=== PATIENT | female | born 2000 | race Caucasian/White ===

== ENCOUNTER 2018-05-08 13:41 | Emergency (ER) | payer OTHER ==
[2018-05-08 14:14] VITALS: BP 141/68
--- NOTE | 2018-05-08 14:22 | UC ---
General HPI - HPI Summary HPI Summary: pt fell on a cement sidewalk around 1am(05/08/18)and cut her R knee. her friends tried to clear it. she comes in today to have it checked at the request of her mother. last tetanus was within 10 years, mother confirms this. no bony deformity of limited ROM. no fever or swelling. - History of Current Complaint Chief Complaint: UCLaceration Stated Complaint: RIGHT KNEE INJURY Time Seen by Provider: 05/08/18 14:03 Hx Obtained From: Patient Hx Last Menstrual Period: 04/26/17 Onset/Duration: Sudden Onset Timing: Constant Pain Intensity: 0 Associated Signs & Symptoms: Negative: Edema, Fever - Allergy/Home Medications Allergies/Adverse Reactions: Allergies Allergy/AdvReac Type Severity Reaction Status Date / Time No Known Allergies Allergy Verified 05/08/18 14:07 PMH/Surg Hx/FS Hx/Imm Hx Previously Healthy: Yes - Surgical History Surgical History: Yes Surgery Procedure, Year, and Place: WISDOM TEETH EXTRACTIONS - Social History Occupation: Student Lives: Dormitory/Roommates Alcohol Use: Weekly Substance Use Type: None Smoking Status (MU): Never Smoked Tobacco - Immunization History Vaccination Up to Date: Yes Review of Systems All Other Systems Reviewed And Are Negative: Yes Constitutional: Positive: Negative Skin: Positive: Negative Eyes: Positive: Negative ENT: Positive: Negative Respiratory: Positive: Negative Cardiovascular: Positive: Negative Gastrointestinal: Positive: Negative Genitourinary: Positive: Negative Motor: Positive: Negative Neurovascular: Positive: Negative Musculoskeletal: Positive: Negative Neurological: Positive: Negative Psychological: Positive: Negative Physical Exam Triage Information Reviewed: Yes Appearance: Well-Appearing Vital Signs: Initial Vital Signs Temp 98.8 F 05/08/18 14:07 Pulse 98 05/08/18 14:07 Resp 20 05/08/18 14:07 BP 141/68 05/08/18 14:07 Pulse Ox 100 05/08/18 14:07 Vital Signs Reviewed: Yes Eyes: Positive: Conjunctiva Clear ENT: Positive: Normal ENT inspection Neck: Positive: Supple Respiratory: Positive: Lungs clear Cardiovascular: Positive: RRR Abdomen Description: Positive: Nontender Bowel Sounds: Positive: Present Musculoskeletal: Positive: Other: - RLE: hip, knee, ankle have no bony deformity or tenderness. There is a 2cm irregeular flap type laceration over the knee area. Fat seen but no bony exposure. It is soiled with dirt type tatooing in skin and fine specs of stone. No swelling, erythema, warmth or tenderness. Leg has ful s/v/m function. Neurological: Positive: Alert Psychological: Positive: Age Appropriate Behavior Skin Exam: Normal Course/Dx - Course Course Of Treatment: Procedure by this provider: Wound cleaned with sterile gauze and dilute warm water, peroxide and betadine which removed the heavy soiling and most of the tatooing to skin. Area then was then flushed with large amounts of sterile water under pressure. area dried with sterile gauze and covered with topical antibiotic ointment plus non adhering dressing. pt tolerated well. I spoke to pt's mom at bedside on pt's phone during visit about tx and plan. . wound not sutured due to combination of age and soiling. benefit of any suturing did not out weight risk for infection. will tx with augmentin and bactroban in an effort to prevent infection. - Diagnoses Provider Diagnosis: Laceration of knee with foreign body Discharge - Sign-Out/Discharge Documenting (check all that apply): Patient Departure All imaging exams completed and their final reports reviewed: No Studies - Discharge Plan Condition: Stable Disposition: HOME Prescriptions: Amoxicillin/Clavulanate TAB* [Augmentin TAB 875*] 875 mg PO BID 7 Days #14 tab Mupirocin 2% OINT* [Bactroban 2 % Oint*] 1 applic TOPICAL BID #1 tube Patient Education Materials: Laceration Without Closure (ED) Referrals: [facility] [[email or web address], APPLICATION, OTHER] - 5 Days - Billing Disposition and Condition Condition: STABLE Disposition: Home
== END 2018-05-08 14:53 | disposition home or self-care (01) ==
LOC: UCCORT 13:41
DX: S81.021A Laceration with foreign body, right knee, initial encounter (principal); W18.39XA Other fall on same level, initial encounter; Y92.480 Sidewalk as the place of occurrence of the external cause
CPT/HCPCS: 99202; G0463